=== PATIENT | female | born 1975 | race Caucasian/White ===

== ENCOUNTER → 2018-04-10 | Outpatient (CLI) | payer OTHER ==
--- NOTE | 2018-04-11 09:18 | MAM ---
EXAM DESCRIPTION: 3D Screening BILATERAL : Digital Mammography. CLINICAL HISTORY: 43 years Female SCREEN . No complaints or personal history of breast cancer. Remote family history of breast cancer. Childbirth. Premenopausal. No HRT. Bilateral breast augmentation. Lifetime risk of developing breast cancer (Tyrer-Cuzick model)(%): 8.0. COMPARISON: None available. No prior reports available. TECHNIQUE: Bilateral CC and MLO projection full-field images, with Debbie Implant Displacement digital tomosynthesis mammographic technique. Bilateral 2-D digital full-field images, MLO and CC projections, non-displaced. CAD Bilateral digital 2-D full-field MLO images. CAD not available for tomosynthesis or 2-D images. FINDINGS: The breast parenchymal density pattern is: Heterogeneously dense breast tissue, which may obscure small masses. No skin thickening or nipple retraction. Mass density approximately 1 cm diameter in the anterior to middle third of the right breast, upper outer quadrant approximately 10-10 30 clock position, well visualized on the implant displacement images. Slightly more dense than the surrounding fibroglandular tissues. Mostly circumscribed margins, 3 cm from the nipple. Not well seen on the non implant displaced images. Bilateral retromuscular saline implants. Densities in the retroareolar left breast may represent prior biopsy site. No new focal, stellate mass or density, focal asymmetry , and no suspicious microcalcifications right breast. IMPRESSION: BI-RADS CATEGORY: 0 - INCOMPLETE- Need additional imaging evaluation. FOLLOW-UP: Recall for additional imaging: Targeted right breast ultrasound of the region of interest. Orthogonal diagnostic digital tomosynthesis right breast if indicated by ultrasound imaging. Written communication concerning the IMPRESSION and Follow-up, will be mailed to the patient and referring health care provider. Electronically signed by: Arun Alvarez MD 04/11/2018 9:17 AM [employer]INE [employer] SEPARATOR OPERATOR
== END ==
LOC: MAMMO 11:32
PROVIDERS: ATTEND Obstetrics & Gynecology
DX: Z12.31 Encounter for screening mammogram for malignant neoplasm of breast (principal)

== ENCOUNTER → 2018-05-01 | Outpatient (CLI) | payer BC, OTHER ==
--- NOTE | 2018-05-01 13:39 | US ---
EXAM DESCRIPTION: Breast,Right: Ultrasound CLINICAL HISTORY: 43 yearsFemaleABNORMAL MAMMO COMPARISON: Digital screening tomosynthesis bilateral breasts 04/10/2018. No diagnostic mammographic examination at this time. TECHNIQUE: Transcutaneous scanning of the right breast utilizing hightower-scale and Doppler modes. Scanning performed by the tester rocket engine and Dr. Alvarez. FINDINGS: Scanning of the upper outer quadrant of the right breast 3 cm from the nipple. Predominantly fibroglandular tissues with minimal fatty echotexture. Hypoechoic circumscribed mass at 11:00 position with wider than tall orientation and mixed posterior enhancement and shadowing features. Dimensions 8.7 x 9.2 x 4.7 mm. Minimal vascularity. Most likely a lymph node. No distinct cyst. No large calcifications or parenchymal edema. No overlying skin changes. Typical double echogenic line of saline breast implant capsule with no contour abnormalities were seen. IMPRESSION: Benign exam. BIRAD CATEGORY: 2 BENIGN FINDINGS. RECOMMENDATIONS: FOLLOW UP: Return to routine digital bilateral mammographic screening, one year interval from March 2018. The FINDINGS and the FOLLOW-UP plan were reviewed in person with the patient after the examination. Written communication explaining the IMPRESSION and FOLLOW-UP will be mailed to the patient and referring care provider. According to the [employer], yearly mammograms are recommended starting at age 40 and continuing as long as a woman is in good health. Any breast change noted on a breast self-exam should be reported promptly to the patient's healthcare provider. Breast MRI is recommended for women with an approximately 20-25% or greater lifetime risk of breast cancer, including women with a strong family history of breast or ovarian cancer and women who have been treated for Hodgkin's disease. A negative mammographic report should not delay tissue diagnosis in patients with significant clinical history or physical findings. Extremely dense breast tissue limits the sensitivity of digital mammography. Electronically signed by: Arun Alvarez MD 05/01/2018 1:38 PM TAPER MACHINE
== END ==
LOC: MAMMO 09:18
PROVIDERS: ATTEND Obstetrics & Gynecology
DX: N63.10 Unspecified lump in the right breast, unspecified quadrant (principal)

== ENCOUNTER → 2019-07-30 | Outpatient (CLI) | payer BC | LOC: GMAHI 11:30 | PROVIDERS: ATTEND Nurse Practitioner Family | DX: E34.8 Other specified endocrine disorders (principal) ==